=== PATIENT | male | born 1965 | race Caucasian/White ===

== ENCOUNTER 2022-08-26 22:19 | Emergency (ER) | payer BC ==
[~2022-08-26] VITALS: Ht 188 cm; Wt 144.2 kg
[2022-08-26 22:22] VITALS: BP 161/100
[2022-08-26] MEDS: GLUCAGON 1MG KIT 1 MG ML IM SCH (23:39)
[2022-08-27] MEDS: GLUCAGON 1MG KIT 1 MG ML IV SCH
[2022-08-27] MEDS: 0.9%NACL 1000ML 1,000 ML IV ONE (00:19)
== END 2022-08-27 00:31 | disposition home or self-care (01) ==
LOC: EDH 22:19
DX: T18.128A Food in esophagus causing other injury, initial encounter (principal); E78.00 Pure hypercholesterolemia, unspecified; I10 Essential (primary) hypertension; X58.XXXA Exposure to other specified factors, initial encounter; Y93.89 Activity, other specified; Y92.89 Other specified places as the place of occurrence of the external cause; Y99.8 Other external cause status
CPT/HCPCS: 99284; 71046; 96372; J1610